=== PATIENT | male | born 1995 | race Two or more races ===

== ENCOUNTER → 2016-11-01 | Outpatient (CLI) | payer OTHER | LOC: BMCIMAGING 10:12 | PROVIDERS: ATTEND Family Medicine | DX: N50.811 Right testicular pain (principal); N45.1 Epididymitis ==

== ENCOUNTER → 2016-11-03 | Outpatient (CLI) | payer OTHER | LOC: FIMAGING 11:14 | PROVIDERS: ATTEND Emergency Medicine | DX: R10.31 Right lower quadrant pain (principal) ==